=== PATIENT | male | born 1975 | race Caucasian/White ===

== ENCOUNTER 2019-08-24 18:52 | Emergency (ER) | payer MEDICAID ==
[~2019-08-24] VITALS: Ht 177.8 cm; Wt 72.6 kg
--- NOTE | 2019-08-24 18:55 | NUR ---
ED Nurse Note:pt. was BIBA from SNF with respiratory distress, on arrival pt. is non responsive, on non-rebreather O2, hypotensive and tahyapnec, pt. was placed on night monitor, ER MD placed IO access on left lower leg, at 1900 pt. got intubated by ER MD and placed on mechanical ventilator, at 1905 pt. went in to cardiac arrest. CPR was initiated
[2019-08-24 19:00] VITALS: BP 90/55
[2019-08-24] MEDS ORDERED: cefTRIAXone 2 GM in NS 55 ML IVPB ONE (19:00)
[2019-08-24] MEDS ORDERED: propofoL 1,000mg/100ml 0 ML IV ONE (19:04)
--- NOTE | 2019-08-24 19:05 | NUR ---
ED Nurse Note: See code flow sheet.
[2019-08-24] MEDS ORDERED: SPIRONOLACTONE25 MG ORAL (19:10)
[2019-08-24] MEDS ORDERED: AMLODIPINE BESY10 MG ORAL (19:10)
[2019-08-24] MEDS ORDERED: MELOXICAM15 MG PO (19:10)
[2019-08-24] MEDS ORDERED: BISACODYL5 MG ORAL (19:10)
[2019-08-24] MEDS ORDERED: APLISOL5 TUB UNIT ID (19:10)
[2019-08-24] MEDS ORDERED: VITAMIN D3100 GM MC (19:10)
[2019-08-24] MEDS ORDERED: DOCUSATE SODIU100 MG ORAL (19:10)
[2019-08-24] MEDS ORDERED: ACETAMINOPHEN160 MG ORAL (19:10)
[2019-08-24] MEDS ORDERED: Sodium Bicarbonate 50ml Carp ONE ×3 (19:15→19:25)
[2019-08-24] MEDS ORDERED: Rocuronium Bromide 100mg/10ml Inj IV ONE (19:15)
[2019-08-24] MEDS ORDERED: Etomidate 40mg/20ml Inj IV ONE (19:15)
--- NOTE | 2019-08-24 19:30 | NUR ---
ED Nurse Note: Day shift RN Tg was present in iso room for code administering medications. This RN recorded and filled out flow sheet
--- NOTE | 2019-08-24 19:45 | NUR ---
ED Nurse Note: one legacy notified, spoke with franchise sales representative ann, was given a one legacy number of [id number]
--- NOTE | 2019-08-24 19:52 | Emergency Room Report ---
History of Present Illness General Chief Complaint: Dyspnea/Respdistress Source: Medical Record, EMS Present Illness HPI Disclaimer: Please note that this report is being documented using DRAGON technology. This can lead to erroneous entry secondary to incorrect interpretation by the dictating instrument. HPI: This is a 44-year-old male with unknown medical history presenting from convalescent home in respiratory extremis. EMS reports tachycardia, low oxygen saturation on 15 L nonrebreather, apneic breathing on route. Unknown COVID status. Unknown medical history. Could not obtain any information from patient. PMH: Unable to obtain PSH: Able to obtain Allergies: Unable to obtain Social Hx: Unable to obtain Allergies: Coded Allergies: AMPICILLIN (Verified Allergy, Unknown, 08/24/19) COVID-19 Screening Contact w/high risk pt: Yes Recent Travel to affected area: No Experienced COVID-19 symptoms?: Yes COVID-19 symptoms experienced: Shortness of Breath COVID-19 Testing performed BINDERY WORKER: No - Unknown Nursing Documentation-PMH Past Medical History: No History, Except For Hx Hypertension: Yes - Muscle weakness Review of Systems All Other Systems: limited - Unable to obtain due to clinical condition. Physical Exam Vital Signs Date Time Temp Pulse Resp B/P (MAP) Pulse Ox O2 Delivery O2 Flow Rate FiO2 08/24/19 19:00 95.0 45 12 90/55 75 Non-Rebreather General: Unresponsive, apneic breathing, hypotensive HEENT: NC/AT. EOMI. Cardiovascular: Tachycardic Resp: Agonal breathing. 15 L nonrebreather. Abdomen: Abdomen is soft, nondistended Skin: Slightly jaundiced in appearance MSK: Normal tone and bulk. Moving all extremities. No obvious deformity. Neuro: Unresponsive, GCS 5 Procedures Intubation Intubation : Consent: Emergent Intubation Method: orotracheal Tube Size (cm): 7.5 Medications: Etomidate, Rocuronium Breath Sounds after Intubation: equal Intubation Complications: no complications Post Intubation Xray: No Attempts: One Patient Tolerated: Well Complications: None Medical Decision Making Diagnostic Impression: Primary Impression: Respiratory failure Additional Impression: Cardiac arrest ER Course 44-year-old male arrives in respiratory distress. Patient was immediately placed on monitor showing persistent hypoxia. Agonal breaths concern for respiratory failure he was intubated with a 7.5 endotracheal tube under glide scope visualization. Positive color change and misting in the tube also noted with equal chest rise and bilateral breath sounds. Medications were given through bilateral intraosseous lines in the proximal tibias as the patient had very poor vascular access. There was significant blood in the airway and in the endotracheal tube. Heart rate began to drop and no palpable pulses were found. A CODE BLUE was called. Compressions were started. Patient was given multiple rounds of epinephrine and bicarb per ACLS protocol. Initial monitor was PEA followed by several pulse checks at asystole. Patient had possible ventricular fibrillation on 2 pulse checks and was defibrillated without a change in condition. CPR and resuscitative efforts went on for approximately 30 minutes. Due to the prolonged nature of the code and fail to improve patient 's condition resuscitative efforts were terminated. Bedside echo did not find any organized cardiac activity. Suspect hemorrhage and respiratory failure as the cause of . Patient was pronounced at 1935. PMD notified. Last Vital Signs Date Time Temp Pulse Resp B/P (MAP) Pulse Ox O2 Delivery O2 Flow Rate FiO2 08/24/19 19:37 0 0 Mechanical Ventilator 08/24/19 19:00 95.0 90/55 (38) 75 Disposition: Condition: Referrals: NON PHYSICIAN (PCP) Phillip Andrade MD Aug 24, 2019 19:52
--- NOTE | 2019-08-24 20:10 | NUR ---
spoke with dinora from [facility], states that they will not follow through and was not given a CC number.
--- NOTE | 2019-08-24 20:15 | NUR ---
ED Nurse Note: called paulo petersen, patient's emergency contact per SNF, . was told that the only family member that this patient has is his mom who currently has dementia. Paulo is currently taking of patient's mother.
--- NOTE | 2019-08-24 20:45 | NUR ---
ED Nurse Note: Rapid covid test sent to lab
[2019-08-24 21:35] VITALS: BP 0/0
--- NOTE | 2019-08-25 08:00 | NUR ---
spoke to patients neighbor regarding the patient [phone] ARON COHN.he says patients mom lives by herslef and she is demented wants a health social work professor or some one to go to her home to explain what happened our health social work professor spoke to tess patients sabrina
--- NOTE | 2019-08-25 08:48 | NUR ---
POST DC NOTE CARLEY spoke w/ pt's neighbor Paulo oMreno [phone], stating that the manager building and he is temporarily providing care for pt's mother, Alisia Escudero. 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 Per Paulo, Alisia does not have a contact number. The address is [address] [place] [id number]. Paulo confirmed pt does not have any family members other than his mother. Alisia has dx of Dementia. Per Paulo, Linda is attempting to contact the [facility] asbestos hazard abatement worker for assistance w/ care of the mother. Linda: [phone]. CARLEY left a vm for call back to gather information. CARLEY filed APS report #[id number] as Paulo expressed his concern of pt's mother's well-being. CARLEY relayed all information to the nursing plastics fabrication supervisor. Addendum: 08/25/19 at 0940 by VIOLETA HOWE CARLEY received a call back from Linda. Linda verbalized she will also contact APS.
--- NOTE | 2019-08-25 08:51 | NUR ---
called dr [phone]. per his office dr bower never saw the patient unable to sign the certificate instructed to call [facility] . spoke to [facility] nursing supervisor train operations states patient got there yesterday so no has seen him
--- NOTE | 2019-08-25 15:46 | NUR ---
POST DC NOTE CARLEY spoke w/ CARLEY Noyola from [facility] [phone] asking for the detail on pt's social hx. This SW did not have any information. CARLEY received a call from the sales attendant building materials, Linda that she contacted [facility] transported the mother to the hospital.
== END 2019-08-24 21:35 | disposition expired ==
LOC: EDBD 18:52 → EMR 19:14 → CANBEDREQ 19:59 → EMR 21:35
DX: J96.90 Respiratory failure, unspecified, unspecified whether with hypoxia or hypercapnia (principal); I46.9 Cardiac arrest, cause unspecified; Z88.0 Allergy status to penicillin; R00.0 Tachycardia, unspecified; I95.9 Hypotension, unspecified; R17 Unspecified jaundice
CPT/HCPCS: 92950; J7030; U0002; Z7502; 31500; 99291